=== PATIENT | male | born 2000 | race Caucasian/White ===

== ENCOUNTER 2018-02-20 15:28 | Emergency (ER) | END 2018-02-20 19:09 | disposition home or self-care (01) ==

== ENCOUNTER 2018-07-24 16:09 | Emergency (ER) | payer MEDICAID, OTHER ==
[~2018-07-24] VITALS: Ht 175.3 cm; Wt 132.0 kg
[~2018-07-24 16:09] MED LIST: FEXO180T61 PO; HC30CR25 TOP
[2018-07-24 16:15] VITALS: Ht 175.3 cm; Wt 132.0 kg
[2018-07-24] MEDS ORDERED: KETOROLAC 60 MG INJ IM STA (17:33)
[2018-07-24] MEDS ORDERED: ACETAMINOPHEN 325 MG TAB PO ONE (18:00)
[2018-07-24] MEDS ORDERED: DOXY100T21 PO (18:50)
[2018-07-24] MEDS ORDERED: D-ME473S2 PO (18:50)
[2018-07-24] MEDS ORDERED: IBUP-1542 PO (18:50)
--- NOTE | 2018-07-24 18:52 | ERD ---
ER Documentation Chief Complaint Chief Complaint Complains of fever x 3 days HPI 17-year-old male presents with approximate 4-day history of cough and fever and body aches. He has productive mucus. Denies vomiting, abdominal pain, diarrhea, neck stiffness, rashes. ROS All systems reviewed and are negative except as per history of present illness. Medications Home Meds Active Scripts Dextromethorphan Hb-Promethazine Hcl* (Promethazine DM* Syrup) 473 Ml Syrup, 5 ML PO Q6 PRN for COUGH for 4 Days, ML Prov:BEREKET ONTIVEROS MD 07/24/18 Ibuprofen* (Motrin*) 600 Mg Tab, 600 MG PO Q6, #20 TAB Prov:BEREKET ONTIVEROS MD 07/24/18 Doxycycline Monohydrate* (Doxycycline Monohydrate*) 100 Mg Tablet, 100 MG PO BID for 7 Days, TAB Capsules okay Prov:BEREKET ONTIVEROS MD 07/24/18 Fexofenadine Hcl* (Vangie*) 180 Mg Tablet, 180 MG PO DAILY, #30 TAB Prov:BEREKET ONTIVEROS MD 02/20/18 Hydrocortisone* Topical (Hydrocortisone* Topical) 2.5%-28.3 Gm Cream..g., 1 APPLIC TOP BID for 7 Days, #1 TUB Prov:BEREKET ONTIVEROS MD 02/20/18 Allergies Allergies: Coded Allergies: No Known Allergy (Unverified , 07/24/18) PMhx/Soc Hx Alcohol Use: No Hx Substance Use: No Hx Tobacco Use: No Smoking Status: Never smoker FmHx Family History: No diabetes, No coronary disease, No other Physical Exam Vitals Vital Signs Date Temp Pulse Resp B/P (MAP) Pulse Ox O2 O2 Flow FiO2 Time Delivery Rate 07/24/18 99.0 70 19 139/89 99 Room Air 19:00 (106) 07/24/18 101.0 110 20 148/91 98 16:15 (110) Physical Exam Const: No acute distress Head: Atraumatic Eyes: Normal Conjunctiva ENT: Normal External Ears, Nose and Mouth. TMs and oropharynx normal. Neck: Full range of motion. No meningismus. Resp: Clear to auscultation bilaterally with coarse cough without rales, wheezing or retractions. Cardio: Regular rate and rhythm, no murmurs Abd: Soft, non tender, non distended. Normal bowel sounds Skin: No petechiae or rashes Back: No midline or flank tenderness Ext: No cyanosis, or edema Neur: Awake and alert Psych: Normal Mood and Affect Results 24 hrs Current Medications Medications Dose Sig/Albert Start Time Status Last (Trade) Ordered Route PRN Stop Time Admin Dose Reason Admin Ketorolac 60 mg ONCE STAT 07/24/18 DC 07/24/18 Tromethamine IM 17:33 17:38 (Toradol) 07/24/18 17:34 650 mg ONCE ONCE 07/24/18 DC 07/24/18 Acetaminophen PO 18:00 17:37 (Tylenol 07/24/18 18:01 Tab) Procedures/MDM Chest X-ray 1V Interpreted by me: Soft Tissue: No acute abnormalities Bones: No acute abnormalities Mediastinum/Cardiac Silhouette/Lungs: Possible slight left mid zone patchy infiltrate. No focal consolidation. Impression-possible left mid zone patchy infiltrate. Patient is given Toradol 60 mg IM and Tylenol. Patient has a fever and URI symptoms last 4 days. Signs and symptoms suggestive of acute viral illness although given findings on chest x-ray will be treated with doxycycline, fever control, promethazine DM, primary care follow-up and return precautions. The patient was stable with no new complaints during the ER course. Clinically, there is no current evidence to suggest meningitis, sepsis, acute abdomen, stroke, acute coronary syndrome, pulmonary embolism, aortic dissection or any other emergent condition appearing to require further evaluation or hospitaliz ation. Patient counseled regarding my diagnostic impression and care plan. Prior to discharge all questions answered. Pt agrees with treatment plan and understands strict return precautions. Pt is instructed to follow up with primary care provider within 24-48 hours. Precautionary instructions provided including instructions to return to the ER if not improving or for any worsening or changing symptoms or concerns. Departure Diagnosis: Primary Impression: URI (upper respiratory infection) URI type: unspecified URI Qualified Codes: J06.9 - Acute upper respiratory infection, unspecified Additional Impression: Fever Fever type: unspecified Qualified Codes: R50.9 - Fever, unspecified Condition: Stable Patient Instructions: Pneumonia, Fever Control (Adult) Additional Instructions: There is signs of possible mild pneumonia we will treat for this although may be viral illness or influenza. Recheck for new or worsening symptoms with primary care doctor. TEEHEE,BEREKET N. MD Jul 24, 2018 18:52
[2018-07-24 19:00] VITALS: BP 139/89; PULSE 70; RESP 19
== END 2018-07-24 19:01 | disposition home or self-care (01) ==
LOC: FTE 16:09
DX: J06.9 Acute upper respiratory infection, unspecified (principal)
CPT/HCPCS: 71045; 96372; J1885; Z7502; Z7610